=== PATIENT | male | born 1960 | race Caucasian/White ===

== ENCOUNTER → 2024-01-24 10:42 | Outpatient (BNVA) | payer MEDICARE, MEDICAID, SELFPAY | PROVIDERS: Visit Provider Nurse Practitioner Family | DX: L57.0 Actinic keratosis (principal); D22.61 Melanocytic nevi of right upper limb, including shoulder; L57.8 Other skin changes due to chronic exposure to nonionizing radiation; L82.1 Other seborrheic keratosis; L81.4 Other melanin hyperpigmentation; L81.5 Leukoderma, not elsewhere classified; L82.0 Inflamed seborrheic keratosis; Z85.820 Personal history of malignant melanoma of skin; Z85.828 Personal history of other malignant neoplasm of skin | CPT/HCPCS: 17000; 17110; 99213 ==

== ENCOUNTER → 2024-05-04 10:34 | Outpatient (BNVA) | payer MEDICARE, MEDICAID, SELFPAY | PROVIDERS: PCP Family Medicine; Visit Provider Family Medicine | DX: R31.9 Hematuria, unspecified (principal) | CPT/HCPCS: 81000 ==

== ENCOUNTER 2024-05-31 15:28 | Outpatient (CLI) | payer MEDICARE, SELFPAY ==
--- NOTE | 2024-05-31 15:45 | USCV_ITS ---
Jeffery Nunez Age: 63 Gender: M : 1960 Exam Date: 05/31/2024 15:37 Ordering Phys: Fredo Hernandez DO Technologist: CT Exam Location: [facility] – [place]_ Indication: PROCEDURES: LLE ultrasound FINDINGS: dvt CONCLUSIONS Acute occlusive DVT Left common femoral, femoral and popliteal extending to peroneal GSV occluded from take off to mid thigh Provider notified by diesel truck mechanic at time of exam Vito Fields MD (Electronically Signed) Final Date: 31 May 2024 16:44 S
== END 2024-05-31 15:29 | disposition home or self-care (01) ==
LOC: RAD 15:30
PROVIDERS: PCP Family Medicine; Visit Provider Family Medicine
DX: M79.89 Other specified soft tissue disorders (principal); I82.812 Embolism and thrombosis of superficial veins of left lower extremity; I82.412 Acute embolism and thrombosis of left femoral vein; I82.432 Acute embolism and thrombosis of left popliteal vein; I82.452 Acute embolism and thrombosis of left peroneal vein
CPT/HCPCS: 93971

== ENCOUNTER → 2024-07-03 08:29 | Outpatient (BNVA) | payer MEDICARE, SELFPAY | PROVIDERS: PCP Family Medicine; Visit Provider Family Medicine | DX: I10 Essential (primary) hypertension (principal); I82.409 Acute embolism and thrombosis of unspecified deep veins of unspecified lower extremity; E83.42 Hypomagnesemia; R79.89 Other specified abnormal findings of blood chemistry | CPT/HCPCS: 80053; 80061; 82306; 82607; 82746; 83735; 84439; 84443; 85025; G0103 ==

== ENCOUNTER 2024-12-11 15:17 | Outpatient (CLI) | payer MEDICARE, SELFPAY ==
--- NOTE | 2024-12-11 15:30 | USCV_ITS ---
Jeffery Nunez Age: 64 Gender: M : 1960 Exam Date: 12/11/2024 15:42 Ordering Phys: Fredo Hernandez DO Technologist: FARHAT [place] [facility] [place]: Follow up with acute thrombus in May HISTORY: DVT-LEFT PROCEDURES: Comparison:. 05/31/24 Venous duplex imaging was performed in only the left lower extremity. The following venous structures were evaluated: common femoral vein, profunda vein, proximal portion of the greater saphenous vein, superficial femoral vein, and the popliteal vein. In addition, the posterior tibial and peroneal trunk were evaluated. 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 CONCLUSIONS Non occlusive DVT left CFV and distal SFV. Dr. Lizabeth Monique DO (Electronically Signed) Final Date: 11 December 2024 16:21 S
== END 2024-12-11 15:18 | disposition home or self-care (01) ==
LOC: RAD 15:23
PROVIDERS: PCP Family Medicine; Visit Provider Family Medicine
DX: I82.402 Acute embolism and thrombosis of unspecified deep veins of left lower extremity (principal)
CPT/HCPCS: 93971

== ENCOUNTER → 2025-01-23 10:19 | Outpatient (BNVA) | payer MEDICARE, SELFPAY | PROVIDERS: PCP Family Medicine; Visit Provider Nurse Practitioner Family | DX: L57.8 Other skin changes due to chronic exposure to nonionizing radiation (principal); L81.4 Other melanin hyperpigmentation; L82.1 Other seborrheic keratosis; D18.01 Hemangioma of skin and subcutaneous tissue; L81.5 Leukoderma, not elsewhere classified | CPT/HCPCS: 99213 ==

== ENCOUNTER → 2025-02-13 08:30 | Outpatient (BNVA) | payer MEDICARE, SELFPAY | PROVIDERS: PCP Family Medicine; Visit Provider Family Medicine | DX: Z12.5 Encounter for screening for malignant neoplasm of prostate (principal); I10 Essential (primary) hypertension; I82.409 Acute embolism and thrombosis of unspecified deep veins of unspecified lower extremity; E78.2 Mixed hyperlipidemia; E55.9 Vitamin D deficiency, unspecified; R79.89 Other specified abnormal findings of blood chemistry | CPT/HCPCS: 80053; 80061; 82306; 82607; 84443; 85025; G0103 ==

== ENCOUNTER 2025-03-05 07:25 | Outpatient (CLI) | payer MEDICARE, SELFPAY ==
--- NOTE | 2025-03-05 07:45 | CT_ITS ---
WS: [id number] LDCT LUNG CANCER SCREENING HISTORY: F17.210 - Nicotine dependence, cigarettes, uncomplicated TECHNIQUE: Axial imaging performed from the apices to 1 cm below the costophrenic angles. Coronal and sagittal reformats are submitted with axial MIP series. All CT scans at [facility] use at least one of these dose optimization techniques: automated exposure control; mA and/or kV adjustment per patient size (includes targeted exams where dose is matched to clinical indication); or iterative reconstruction. DLP: 67.19 mGy.cm DIvol: Mean CTDIvol: 1.20 (mGy) COMPARISON: None available. Diagnostic quality: Satisfactory Lungs: Mild pulmonary hyperexpansion. Areas of groundglass attenuation in the upper lung diane. Most concerning area of groundglass attenuation RIGHT upper lobe measures 1.3 x 1.3 x 2.0 cm. There is an associated 0.6 cm nodule. No nodules or solid component associated with the remaining upper lobe groundglass attenuation. 0.3 cm nodule LEFT upper lobe, image 50 of series 5. There are a few granuloma. Heart: Normal size heart with no pericardial effusion.. Dense coronary artery calcifications. Other findings: Normal size aorta with mild atherosclerotic plaque. Normal size pulmonary artery. No adenopathy. Small hiatal hernia. Splenic granulomata. CT/CT lung screening [id number] IMPRESSION: LUNG-RADS: 3S-Probably Benign with Significant Findings FOLLOW UP: 6 Month LDCT OTHER FINDINGS (S MODIFIER): Extensive coronary artery calcifications. Multifocal areas of groundglass attenuation. This may be secondary to pneumonit is or hypersensitivity pneumonia. Low-grade neoplasm may appear similar.
== END 2025-03-05 07:26 | disposition home or self-care (01) ==
LOC: RAD 07:26
PROVIDERS: PCP Family Medicine; Visit Provider Family Medicine
DX: Z12.2 Encounter for screening for malignant neoplasm of respiratory organs (principal); F17.210 Nicotine dependence, cigarettes, uncomplicated; R91.8 Other nonspecific abnormal finding of lung field; J98.4 Other disorders of lung; I25.10 Atherosclerotic heart disease of native coronary artery without angina pectoris; K44.9 Diaphragmatic hernia without obstruction or gangrene; D73.89 Other diseases of spleen
CPT/HCPCS: 71271